=== PATIENT | male | born 1980 | race Caucasian/White ===

== ENCOUNTER 2016-11-11 19:12 | Emergency (ER) | payer OTHER ==
[~2016-11-11] VITALS: Ht 170.2 cm; Wt 96.5 kg
[2016-11-11 19:15] VITALS: Ht 170.2 cm; Wt 96.5 kg
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
[2016-11-11] MEDS ORDERED: DIAZEPAM 5 MG TAB PO ONE (21:00)
[2016-11-11] MEDS ORDERED: HYDROCODONE/APAP (10/325) TAB PO ONE (21:00)
[2016-11-11] MEDS ORDERED: HYDR-906 PO (21:15)
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
== END 2016-11-11 22:24 | disposition home or self-care (01) ==
LOC: FTE 19:12
DX: S20.229A Contusion of unspecified back wall of thorax, initial encounter (principal); Y04.8XXA Assault by other bodily force, initial encounter; Y92.9 Unspecified place or not applicable
CPT/HCPCS: 72072; 72100; Z7502; Z7610